=== PATIENT | female | born 1925 | race Caucasian/White ===

== ENCOUNTER 2016-05-29 16:51 | Emergency (ER) | payer OTHER, MEDICARE ==
[~2016-05-29] VITALS: Ht 167.6 cm; Wt 75.0 kg
[~2016-05-29 16:51] MED LIST: ASPI81TA28 PO; ATOR-24 PO; B-COCAP2 PO; BUPR75TA20 PO; FOLIC ACID PO; FRS/40 PO; METAMUCIL PO; MULT-506 PO
[2016-05-29 17:00] VITALS: TEMP 36; Ht 167.6 cm; Wt 75.0 kg
[2016-05-29] MEDS ORDERED: DIPHTHERIA/TETANUS/PERTUSSIS 0.5 ML SYR/VIAL IM. ONE (17:15)
--- NOTE | 2016-05-29 17:28 | EMERGENCY ROOM VISIT NOTE ---
History Report prepared by Zeny: Frankie Peng Under the Supervision of: Dr. Miguel Funez M.D. First contact with patient: 16:56 Chief Complaint: FALL Stated Complaint: FALL, HEAD INJURY History of Present Illness The patient is an 89 year old female who presents to the Emergency Room after a fall prior to arrival. The patient was in the parking lot of her alf where she fell and hit her head. She was found by a farm equipment maintenance supervisor who saw blood on the ground and then found her sitting in his car. The patient does not remember getting into a car that was not hers. She denies any pain or medical complaints at this time. Her history is limited due to AMS. Source of History: alf notes, nursing staff Onset: prior to arrival Position: other (global) Note: Denies: pain or medical complaints at this time. Review of Systems The ROS is limited due to AMS. Past Medical & Surgical Medical Problems: (1) Angioplasty (2) Benign hypertension (3) Cardiac catheterization (4) Cardiac stent (5) Fracture of cervical spine (6) Glaucoma (7) Heart disease (8) Hyperlipidemia (9) Kidney disease (10) Macular degeneration (11) Myocardial infarction Family History No pertinent family history Social History Smoking Status: Never Smoker Marital Status: Housing Status: assisted living Occupation Status: retired Current/Historical Medications Scheduled Aspirin (Aspirin Ec), 81 MG PO DAILY Atenolol (Tenormin), 12.5 MG PO DAILY Atorvastatin (Lipitor), 40 MG PO HS Bupropion (Wellbutrin), 75 MG PO DAILY Folic Acid (Folic Acid), 400 MCG PO DAILY Furosemide (Lasix), 40 MG PO DAILY Multivitamin (Multivitamin), 1 TAB PO DAILY Psyllium (Metamucil), 1 CAP PO DAILY Vitamin B Cmplx/Vitc/Folic Ac (Nephrocaps), 1 CAP PO DAILY Allergies Coded Allergies: Phenobarbital (Verified Allergy, Unknown, 05/13/09) Physical Exam Vital Signs Date Time Temp Pulse Resp B/P Pulse Ox O2 Delivery O2 Flow Rate FiO2 05/29/16 17:35 88 20 165/83 99 Nasal Cannula 2.0 05/29/16 17:00 36.0 85 20 170/88 96 Physical Exam GENERAL: Patient is elderly appearing in no distress. Confused and continues to repeat the same questions. HEENT: Large hematoma over posterior scalp with blood matted in hair, mucous membranes moist, no nasal congestion, no scleral icterus. NECK: No stridor, no adenopathy, no meningismus, trachea is midline. LUNGS: No dyspnea. Clear to auscultation and equal bilaterally. No wheeze, no rhonchi. HEART: Irregular heart beats and systolic murmur. ABDOMEN: Soft, nontender, bowel sounds positive, no masses appreciated, no peritonitis. BACK: No midline tenderness, no CVA tenderness EXTREMITIES: Normal motion all extremities, no cyanosis, no edema. NEUROLOGIC: Alert and oriented, no acute motor or sensory deficits, no focal weakness, cranial nerves grossly intact. SKIN: No rash, no jaundice, no diaphoresis. Medical Decision & Procedures ER Provider Diagnostic Interpretation: X ray results and stated below per my interpretation and radiologist interpretation. Other radiology results and stated below per my review and radiologist interpretation: HEAD CT NONCONTRAST CT DOSE: HISTORY: fall, posterior head injury, confusion TECHNIQUE: Multiaxial CT images of the head were performed without the use of intravenous contrast. Automated exposure control was utilized for this study. Comparison: Head CT 04/13/2010. Findings: Chronic opacities in the right maxillary sinus and right anterior ethmoid air cells. Postoperative changes within the left globe. The mastoid air cells are clear. Right lateral and posterior scalp swelling. Nondisplaced right parietal fracture. Right-sided Extra-axial hematoma which has a lentiform appearance and measures up to 1.3 cm in thickness. Therefore, this is consistent with an epidural hematoma. Mild mass effect along the right parietal lobe. No significant midline shift. Old small infarcts within the left cerebellar hemisphere and right frontal lobe. Atrophy and microvascular ischemic changes. Trace subarachnoid and subdural hemorrhage within the bifrontal location with associated bifrontal small contusions. The subdural hemorrhage measures up to 4 mm in thickness. Impression: 1. Right parietal epidural hematoma with a nondisplaced right parietal bone fracture 2. Small bifrontal contusions, subarachnoid hemorrhage, and subdural hematomas. Electronically signed by: Peter Tellez M.D. 05/29/2016 5:33 PM Dictated Date/Time: 05/29/2016 5:[address] DOSE: 934.04 mGy.cm HISTORY: Trauma fall, posterior head injury, confusion TECHNIQUE: Multiaxial CT images of the cervical spine were performed and reformatted in the sagittal and coronal plane without the use of contrast. COMPARISON: None. FINDINGS: No fractures. No subluxation. Prevertebral soft tissues and the C1-C2 interval are intact. No pneumothorax. Findings consistent with pin fixation of the C1-C2 complex. This is considered a nonacute finding. There are degenerative intervertebral this changes throughout. IMPRESSION: Degenerative and postoperative change. No acute process. Electronically signed by: Vicente Rojas M.D. 05/29/2016 5:27 PM Dictated Date/Time: 05/29/2016 5:20 PM PELVIS 1 OR 2 VIEW ROUTINE CLINICAL HISTORY: fall. Pelvic pain. COMPARISON STUDY: Pelvis 04/13/2010. FINDINGS: The bones are osteopenic. Old, healed left pubic ring fracture. The sacrum appears intact. No acute fracture or dislocation within the pelvis or hips. There is mild to moderate osteoarthritis within the bilateral hips. IMPRESSION: No acute fracture or dislocation within the pelvis or hips. Electronically signed by: Peter Tellez M.D. 05/29/2016 5:40 PM Dictated Date/Time: 05/29/2016 5:39 PM CHEST ONE VIEW PORTABLE HISTORY: Altered mental status. COMPARISON: Chest 09/14/2012. FINDINGS: Mild diffuse interstitial thickening is likely chronic. The heart remains mildly enlarged. There is extensive posterior fusion within the thoracic spine. Old, healed bilateral humeral neck fractures. The bones are osteopenic. IMPRESSION: No significant change compared to the prior study. No acute process. Stable mild cardiomegaly. Electronically signed by: Peter Tellez M.D. 05/29/2016 5:39 PM Dictated Date/Time: 05/29/2016 5:37 PM Laboratory Results 05/29/16 17:25 Red Blood Count 4.15, Mean Corpuscular Volume 92.0, Mean Corpuscular Hemoglobin 30.4, Mean Corpuscular Hemoglobin Concent 33.0, Mean Platelet Volume 10.8, Neutrophils (%) (Auto) 82.3, Lymphocytes (%) (Auto) 9.1, Monocytes (%) (Auto) 5.4, Eosinophils (%) (Auto) 2.7, Basophils (%) (Auto) 0.3, Neutrophils # (Auto) 7.82, Lymphocytes # (Auto) 0.87, Monocytes # (Auto) 0.51, Eosinophils # (Auto) 0.26, Basophils # (Auto) 0.03 05/29/16 17:25 Test 05/29/16 17:25 05/29/16 17:45 White Blood Count 9.51 K/uL (4.8-10.8) Red Blood Count 4.15 M/uL (4.2-5.4) Hemoglobin 12.6 g/dL (12.0-16.0) Hematocrit 38.2 % (37-47) Mean Corpuscular Volume 92.0 fL (80-100) Mean Corpuscular Hemoglobin 30.4 pg (25-34) Mean Corpuscular Hemoglobin Concent 33.0 g/dl (32-36) Platelet Count 201 K/uL (130-400) Mean Platelet Volume 10.8 fL (7.4-10.4) Neutrophils (%) (Auto) 82.3 % Lymphocytes (%) (Auto) 9.1 % Monocytes (%) (Auto) 5.4 % Eosinophils (%) (Auto) 2.7 % Basophils (%) (Auto) 0.3 % Neutrophils # (Auto) 7.82 K/uL (1.4-6.5) Lymphocytes # (Auto) 0.87 K/uL (1.2-3.4) Monocytes # (Auto) 0.51 K/uL (0.11-0.59) Eosinophils # (Auto) 0.26 K/uL (0-0.5) Basophils # (Auto) 0.03 K/uL (0-0.2) RDW Standard Deviation 46.8 fL (36.4-46.3) RDW Coefficient of Variation 13.9 % (11.5-14.5) Immature Granulocyte % (Auto) 0.2 % Immature Granulocyte # (Auto) 0.02 K/uL (0.00-0.02) Prothrombin Time 10.9 SECONDS (9.0-12.0) Prothromb Time International Ratio 1.0 (0.9-1.1) Activated Partial Thromboplast Time 23.2 SECONDS (21.0-31.0) Partial Thromboplastin Ratio 0.9 Anion Gap 11.0 mmol/L (3-11) Est Creatinine Clear Calc Drug Dose 15.2 ml/min Estimated GFR () 18.2 Estimated GFR (Non- 15.7 BUN/Creatinine Ratio 17.3 (10-20) Calcium Level 9.3 mg/dl (8.5-10.1) Total Bilirubin 0.3 mg/dl (0.2-1) Direct Bilirubin 0.1 mg/dl (0-0.2) Aspartate Amino Transf (AST/SGOT) 23 U/L (15-37) Alanine Aminotransferase (ALT/SGPT) 24 U/L (12-78) Alkaline Phosphatase 95 U/L (45-117) Total Creatine Kinase 181 U/L (26-192) Troponin I < 0.015 ng/ml (0-0.045) Total Protein 7.7 gm/dl (6.4-8.2) Albumin 3.9 gm/dl (3.4-5.0) Bedside Glucose 112 mg/dl (70-90) Laboratory results as reviewed by me. Medications Administered Medications (Trade) Dose Ordered Sig/Rebeca Route Start Time Stop Time Status Last Admin Dose Admin Ondansetron HCl (Zofran Inj) 4 mg STK-MED ONCE .ROUTE 05/29/16 17:41 05/29/16 17:43 DC 05/29/16 17:52 4 MG Fentanyl Citrate (Fentanyl Inj) 25 mcg NOW STAT IV 05/29/16 17:45 05/29/16 17:46 DC 05/29/16 17:52 25 MCG ECG Indication: other Rate (beats per minute): 84 Rhythm: normal sinus Findings: ST depression (Inferior-laterally), no ectopy ED Course 1654: The patient was evaluated in room B2. A complete history and physical exam was performed. 1715: Ordered Adacel Inj 0.5 ml IM. 1716: At this time, the patient's son arrived. He notes that the patient is typically high-functioning. 1722: At this time, I discussed the patient's case with Dr. Carreon - Emergency [facility] and he agreed to accept the patient for further evaluation. 1723: At this time, [facility] was contacted to transport the patient. 1738: At this time, I reevaluated the patient and she complained of mild nausea. 1741: Ordered Zofran Inj 4 mg .ROUTE. 1742: At this time, [facility] arrived and prepared the patient for transfer. 1743: At this time, I reevaluated the patient and she notes her nausea is somewhat resolved after Zofran. 1745: Ordered Fentanyl Inj 100 mcg .ROUTE, Fentanyl Inj 25 mcg IV. 1750: At this time, the patient was transferred to [facility] ED for further evaluation. Dr. Carreon had already accepted the patient. Medical Decision Differential: Toxicological, Infectious, Stroke, SAH, Trauma, Electrolyte Abnormality, Hypoglycemia, Alcohol Intoxication, Drug Intoxication, Cardiac Abnormality, Sepsis, Meningitis/Encephalitis, Trauma, Excited Delirium, Serotonin Syndrome, Psychiatric, amongst other pathologies entertained. 89 yr old female arrives confused with large hematoma posterior scalp after being found in wrong car in local parking lot. She was immediately sent to CT for head/cspine. CXR/PelvXrays negative. CT shows epidural hematoma. Maintaining airways though clearly concussed. Placed in cervical collar as unable to clear c-spine even though ct cervical negative. EKG looks ok. Transferred to [facility] via [facility] given acuity and need for emergent NRSG intervention that is not available here. On ASA 81 mg daily without other blood thinner use. Son notes she is relatively high functioning for 89 and agrees with aggressive management. Fast negative and patient stable prior to transfer. Was given Fentanyl/Zofran prior to transfer for nausea and pain control. Consults Time Called: 1718 Consulting Physician: Dr. Carreon - Emergency Medicine [facility] Returned Call: 1722 At this time, I discussed the patient's case with Dr. Carreon and he agreed to accept the patient for further evaluation. Impression Primary Impression: Epidural hematoma Additional Impressions: Fall Head injury Critical Care I have personally spent greater than 45 minutes of critical care time in the direct management of this patient. This was a life/limb threatening event. This includes time spent evaluating patient, direct bedside care, chart review, placing orders, interpretation of diagnostic studies, discussion with consultants, patient, and family members, as well as other required patient management activities. This 45 minutes is in excess of all separately billable procedures. Scribe Attestation The scribe's documentation has been prepared under my direction and personally reviewed by me in its entirety. I confirm that the note above accurately reflects all work, treatment, procedures, and medical decision making performed by me. Departure Information Dispostion Transfer Acute Care Facility (Dr. Carreon - Emergency Medicine [facility]) Referrals Lucas Tipton M.D. (PCP) Problem Qualifiers Additional Impressions: Fall Encounter type: initial encounter Qualified Codes: W19.XXXA - Unspecified fall, initial encounter Head injury Encounter type: initial encounter Qualified Codes: S09.90XA - Unspecified injury of head, initial encounter
[2016-05-29] MEDS ORDERED: FLV400 PO (17:34)
--- NOTE | 2016-05-29 17:34 | DIAGNOSTIC IMAGING REPORT ---
HEAD CT NONCONTRAST CT DOSE: HISTORY: fall, posterior head injury, confusion TECHNIQUE: Multiaxial CT images of the head were performed without the use of intravenous contrast. Automated exposure control was utilized for this study. Comparison: Head CT 04/13/2010. Findings: Chronic opacities in the right maxillary sinus and right anterior ethmoid air cells. Postoperative changes within the left globe. The mastoid air cells are clear. Right lateral and posterior scalp swelling. Nondisplaced right parietal fracture. Right-sided Extra-axial hematoma which has a lentiform appearance and measures up to 1.3 cm in thickness. Therefore, this is consistent with an epidural hematoma. Mild mass effect along the right parietal lobe. No significant midline shift. Old small infarcts within the left cerebellar hemisphere and right frontal lobe. Atrophy and microvascular ischemic changes. Trace subarachnoid and subdural hemorrhage within the bifrontal location with associated bifrontal small contusions. The subdural hemorrhage measures up to 4 mm in thickness. Impression: 1. Right parietal epidural hematoma with a nondisplaced right parietal bone fracture 2. Small bifrontal contusions, subarachnoid hemorrhage, and subdural hematomas. Electronically signed by: Peter Tellez M.D. 05/29/2016 5:33 PM Dictated Date/Time: 05/29/2016 5:27 PM
[2016-05-29 17:35] VITALS: BP 165/83; PULSE 88; O2SAT 99
[2016-05-29] MEDS ORDERED: PSYL0.524 PO (17:36)
[2016-05-29] MEDS ORDERED: B-CO1CAP17 PO (17:36)
[2016-05-29 17:38] LABS: BASO % 0.3 %; BASO ABS # 0.03 K/uL (0-0.2); COMPLETE YES; EOS % 2.7 %; HEMATOCRIT 38.2 % (37-47); IG% 0.2 %; LYMPH % 9.1 %; LYMPH ABS # 0.87 K/uL (1.2-3.4); MEAN CORPUSCULAR HEMOGLOBIN 30.4 pg (25-34); MEAN PLATELET VOLUME 10.8 fL (7.4-10.4); MONO % 5.4 %; NEUT % 82.3 %; PLATELET COUNT 201 K/uL (130-400); RED BLOOD COUNT 4.15 M/uL (4.2-5.4); WHITE BLOOD COUNT 9.51 K/uL (4.8-10.8)
--- NOTE | 2016-05-29 17:40 | DIAGNOSTIC IMAGING REPORT ---
CHEST ONE VIEW PORTABLE HISTORY: Altered mental status. COMPARISON: Chest 09/14/2012. FINDINGS: Mild diffuse interstitial thickening is likely chronic. The heart remains mildly enlarged. There is extensive posterior fusion within the thoracic spine. Old, healed bilateral humeral neck fractures. The bones are osteopenic. IMPRESSION: No significant change compared to the prior study. No acute process. Stable mild cardiomegaly. Electronically signed by: Peter Tellez M.D. 05/29/2016 5:39 PM Dictated Date/Time: 05/29/2016 5:37 PM
[2016-05-29] MEDS ORDERED: ONDANSETRON INJ 2 MG/ML 2 ML VIAL ONE (17:41)
--- NOTE | 2016-05-29 17:42 | DIAGNOSTIC IMAGING REPORT ---
PELVIS 1 OR 2 VIEW ROUTINE CLINICAL HISTORY: fall. Pelvic pain. COMPARISON STUDY: Pelvis 04/13/2010. FINDINGS: The bones are osteopenic. Old, healed left pubic ring fracture. The sacrum appears intact. No acute fracture or dislocation within the pelvis or hips. There is mild to moderate osteoarthritis within the bilateral hips. IMPRESSION: No acute fracture or dislocation within the pelvis or hips. Electronically signed by: Peter Tellez M.D. 05/29/2016 5:40 PM Dictated Date/Time: 05/29/2016 5:39 PM
[2016-05-29] MEDS ORDERED: FENTANYL CITRATE INJ 50 MCG/1 ML 2 ML VIAL ONE (17:45)
[2016-05-29] MEDS ORDERED: FENTANYL CITRATE INJ 50 MCG/1 ML 2 ML VIAL IV STA (17:45)
[2016-05-29 17:48] LABS: PARTIAL THROMBOPLASTIN RATIO 0.9; PROTHROMBIN TIME (PATIENT) 10.9 SECONDS (9.0-12.0)
[2016-05-29 17:57] LABS: ALT/SGPT 24 U/L (12-78); BLOOD UREA NITROGEN 45 mg/dl (7-18); BUN/CREATININE RATIO 17.3 (10-20); CALCIUM 9.3 mg/dl (8.5-10.1); CARBON DIOXIDE 25 mmol/L (21-32); CHLORIDE 103 mmol/L (98-107); GLUCOSE 132 mg/dl (70-99); POTASSIUM 5.2 mmol/L (3.5-5.1); SODIUM 139 mmol/L (136-145)
[2016-05-29 18:03] LABS: ALKALINE PHOSPHATASE 95 U/L (45-117); AST/SGOT 23 U/L (15-37)
[2016-05-29] MEDS ORDERED: ATEN-173 PO (22:01)
== END 2016-05-29 18:00 | disposition short-term general hospital (02) ==
LOC: EDBD 16:51 → C.EDB 16:52
DX: S06.4X9A Epidural hemorrhage with loss of consciousness of unspecified duration, initial encounter (principal); W19.XXXA Unspecified fall, initial encounter; S06.9X9A Unspecified intracranial injury with loss of consciousness of unspecified duration, initial encounter; I99.9 Unspecified disorder of circulatory system; I10 Essential (primary) hypertension; H40.9 Unspecified glaucoma; E78.5 Hyperlipidemia, unspecified; I51.9 Heart disease, unspecified; N28.9 Disorder of kidney and ureter, unspecified; H35.30 Unspecified macular degeneration; I21.3 ST elevation (STEMI) myocardial infarction of unspecified site; Z79.82 Long term (current) use of aspirin; S02.0XXA Fracture of vault of skull, initial encounter for closed fracture; S00.93XA Contusion of unspecified part of head, initial encounter

== ENCOUNTER → 2016-06-21 | Outpatient (CLI) | payer OTHER, MEDICARE ==
[~2016-06-21] MED LIST changes: +ATEN-173 PO; +B-CO1CAP17 PO; -B-COCAP2 PO; +DOCU100C31 PO; +FLV400 PO; -FOLIC ACID PO; -METAMUCIL PO; +MULT-116 PO; +POLY335019 PO; +PSYL0.524 PO
[2016-06-21 13:25] LABS: BASO % 0.6 %; BASO ABS # 0.04 K/uL (0-0.2); COMPLETE YES; EOS % 4.9 %; HEMATOCRIT 34.1 % (37-47); IG% 0.2 %; LYMPH % 18.6 %; LYMPH ABS # 1.17 K/uL (1.2-3.4); MEAN CELL VOLUME 93.7 fL (80-100); MEAN CORPUSCULAR HEMOGLOBIN 30.2 pg (25-34); MEAN CORPUSCULAR HGB CONC 32.3 g/dl (32-36); MONO % 8.3 %; NEUT % 67.4 %; PLATELET COUNT 284 K/uL (130-400); RED BLOOD COUNT 3.64 M/uL (4.2-5.4); WHITE BLOOD COUNT 6.29 K/uL (4.8-10.8)
[2016-06-21 13:39] LABS: BLOOD UREA NITROGEN 28 mg/dl (7-18); CALCIUM 9.3 mg/dl (8.5-10.1); CARBON DIOXIDE 26 mmol/L (21-32); CHLORIDE 107 mmol/L (98-107); GLUCOSE 86 mg/dl (70-99); POTASSIUM 4.4 mmol/L (3.5-5.1); SODIUM 142 mmol/L (136-145)
[2016-06-21 14:28] LABS: ESTIMATED AVERAGE GLUCOSE 114 mg/dl; HA1C FLAG Normal (Normal)
--- NOTE | 2016-08-15 12:09 | CODING QUERY MEDICAL NECESSITY ---
SUPPORTING DIAGNOSIS NEEDED Young PA, A supporting diagnosis is required for the test/procedure performed on this patient in order for us to be reimbursed by the patient's insurance. Please provide a supporting diagnosis for the following test/procedure listed below next to the test name along with your signature. *If there is no additional diagnosis for this patient that would support the following test/procedure please document that below next to the test/procedure. Test(s)/Procedure(s) that require a supporting diagnosis: * 31867 GLYCATED HEMOGLOBIN DIAGNOSIS: DATE OF SERVICE: 06/21/16 Provider Signature: Date: Thank you Ceferino Olvera [facility] Information Management Once completed, please kindly fax back to [phone] For questions please call [phone]
== END | disposition home or self-care (01) ==
LOC: C.LABOAKS 10:34
PROVIDERS: ATTEND Physician Assistant
DX: E78.5 Hyperlipidemia, unspecified (principal); I10 Essential (primary) hypertension; N28.9 Disorder of kidney and ureter, unspecified; E74.39 Other disorders of intestinal carbohydrate absorption; Z13.1 Encounter for screening for diabetes mellitus

== ENCOUNTER 2016-08-04 16:04 | Inpatient (IN) | payer OTHER, MEDICARE ==
[~2016-08-04] VITALS: Ht 160 cm; Wt 60.6 kg
[2016-08-04] VITALS (23 sets, daily range): BP systolic 99–185; BP diastolic 51–117; PULSE 35–153; TEMP 36.3–37.4; O2SAT 40–100; Ht 160 cm; Wt 60.6 kg
[~2016-08-04 16:04] MED LIST changes: +ATROPINE SULFATE 0.1 MG/ML 10 ML SYR IV ONE; -DOCU100C31 PO; -MULT-116 PO; -POLY335019 PO
[2016-08-04] MEDS ORDERED: METOCLOPRAMIDE HCL INJ 5 MG/ML 2 ML VIAL ONE (16:11)
[2016-08-04] MEDS ORDERED: HEPARIN SOD (PORCINE) 1000 UNIT/ML 10 ML VIAL ONE (16:23)
[2016-08-04] MEDS ORDERED: NiCARDipine HCL INJ 2.5 MG/ML 10 ML AMP ONE (16:23)
[2016-08-04] MEDS ORDERED: MIDAZOLAM HCL 1 MG/ML 2ML VIAL ONE ×3 (16:23→17:41)
[2016-08-04] MEDS ORDERED: FENTANYL CITRATE INJ 50 MCG/1 ML 2 ML VIAL ONE (16:23)
[2016-08-04] MEDS ORDERED: NITROGLYCERIN/D5W 100MCG/ML 20ML SYR ONE (16:24)
[2016-08-04] MEDS: PHENYLEPHRINE HCL INJ 20 MG in DEXTROSE 5% 500ML 500 ML IV PRN (16:25)
[2016-08-04] MEDS ORDERED: MULT-116 PO (16:26)
[2016-08-04] MEDS ORDERED: DOCU100C31 PO (16:26)
[2016-08-04] MEDS ORDERED: POLY335019 PO (16:26)
[2016-08-04] MEDS ORDERED: PHENYLEPHRINE HCL INJ 10 MG/ML VIAL ONE (16:27)
[2016-08-04] MEDS ORDERED: NURSING DECISION MEDICATION ORDER SCH (16:30)
[2016-08-04] MEDS ORDERED: BIVALIRUDIN 250 MG VIAL IV ONE ×2 (16:37→17:44)
--- NOTE | 2016-08-04 16:39 | EMERGENCY ROOM VISIT NOTE ---
History Report prepared by Zeny: Laura Allison Under the Supervision of: Dr. Mohit Levine M.D. First contact with patient: 16:05 Stated Complaint: CARDIAC ALERT History of Present Illness The patient is an 89 year old female who presents to the Emergency Room via ALS with complaints of AMS. The patient currently lives at [facility] and the ambulance was called because the patient was found to have AMS, projectile vomiting, and fecal incontinence. According to EMS personnel the patient was not given aspirin in the field due to persistent vomiting and did not receive Zofran due to her high QT during route. The EMS personnel also stated that during route the patient did not voice any complaints of pain but would recognize her name during transfer. He states that the patient's blood glucose was 197. The EMS personnel also states that the patient did not experience any falls today or any loss of consciousness. The patient's son states that the patient had an acute LA in 1999 and had a stent placed but over the last 17 years she has no other cardiac history. He also states that he spoke to the patient on the phone this morning and states that she was acting and speaking normally. He states that she has been diagnosed with Dementia in the past but that she has days where she is more forgetful and demented than others. He states that the patient had a head bleed in May 2016 where she was transferred to a tertiary care center for further treatment and states that she has recovered well. Source of History: family (son), EMS History Limited By: AMS Onset: 1 hour ACCOUNT DEVELOPMENT ASSOCIATE Position: other (global) Associated Symptoms: + vomiting Note: Associated symptoms: fecal incontinence. Review of Systems ROS limited due to AMS Past Medical & Surgical Medical Problems: (1) Angioplasty (2) Benign hypertension (3) Cardiac catheterization (4) Cardiac stent (5) Fracture of cervical spine (6) Glaucoma (7) Heart disease (8) Hyperlipidemia (9) Kidney disease (10) Macular degeneration (11) Myocardial infarction Family History No pertinent family history Social History Smoking Status: Never Smoker Marital Status: Housing Status: assisted living Occupation Status: retired Current/Historical Medications Scheduled Atenolol (Tenormin), 12.5 MG PO DAILY Atorvastatin (Lipitor), 40 MG PO HS Bupropion (Wellbutrin), 75 MG PO DAILY Docusate Sodium (Docusate Sodium), 1 CAP PO DAILY AT NOON Folic Acid (Folic Acid), 400 MCG PO DAILY Furosemide (Lasix), 40 MG PO DAILY Multiple Vitamins W/ Minerals (Theragran-M), 1 TAB PO QAM Scheduled PRN Polyethylene Glycol 3350 (Miralax), 17 GM PO DAILY PRN for Constipation Allergies Coded Allergies: Phenobarbital (Verified Allergy, Unknown, 08/04/16) Physical Exam Vital Signs Date Time Temp Pulse Resp B/P Pulse Ox O2 Delivery O2 Flow Rate FiO2 08/04/16 16:12 43 08/04/16 16:08 45 22 70/54 08/04/16 16:08 Room Air Physical Exam GENERAL: Patient awake, disoriented and confused. incontinent of stool. SKIN: No erythema, pallor, cyanosis or rash HEENT: Normal head, pupils equal, reactive to light and accommodation. Oral cavity dry mucus membranes Neck: Without adenopathy, no neck vein distention. LUNGS: Clear to auscultation. No wheezes, no rales, no rhonchi. HEART: muffled heart tones with 2/6 systolic murmur. No gallops. No rubs ABDOMEN: No masses, no rebound, no hepatomegaly or splenomegaly. EXTREMITIES: No signs of trauma. No pedal or pretibial edema. No calf or thigh tenderness. NEUROLOGIC: Cranial nerves II-XII within normal limits. No gross motor sensory function deficits. Medical Decision & Procedures Medications Administered Medications (Trade) Dose Ordered Sig/Rebeca Route Start Time Stop Time Status Last Admin Dose Admin Metoclopramide HCl 10 mg 10 mg STK-MED ONCE .ROUTE 08/04/16 16:11 08/04/16 16:12 DC 08/04/16 16:11 10 MG Phenylephrine HCl/ Dextrose (Luís-Synephrine Inj/D5W 500ml) 502 ml @ 0 mls/hr Q0M PRN IV 08/04/16 16:30 09/03/16 16:29 08/04/16 16:25 20 MLS/HR Procedure During catheterization patient became apneic and therefore the financial specialist called for intubation. I assessed the patient and she was not ventilating well and then was intubated with a 7.0 ET tube. Pulse ox increased. CO2 monitoring confirmed correct placement. Both lungs noted to have good breath sounds. The X-ray results are pending. The patient tolerated the procedure well. There were no complications. ECG Indication: altered mental status Rate (beats per minute): 43 Rhythm: sinus bradycardia Findings: complete heart block (3rd), ST depression (Leads 4,5), T-wave inversion (all precordial leads), ST elevation (Leads 2, 3, AVF) ED Course During the patient be given #(the patient is in intubated 1557: The heart alert was called during transport while the patient was in route to the hospital. 1605: Past medical records reviewed. The patient was evaluated in room B1. A complete history and physical examination was performed. 1621: I discussed the case with Dr. Hendricks Cardiology and he will evaluate the patient for further management and care. 1629: The patient is currently being transported to the catheterization lab under Dr. Hendricks Cardiology care. 1652: During catheterization patient became apneic and therefore the financial specialist called for intubation. I assessed the patient and she was not ventilating well and then was intubated with a 7.0 ET tube. Pulse ox increased. CO2 monitoring confirmed correct placement. Both lungs noted to have good breath sounds. The X-ray results are pending. Medical Decision Nurses notes reviewed. Medical history sheet reviewed. Differential diagnosis includes but is not limited to: heart block, acute myocardial infarction, metabolic disorder, dementia, and stroke. The patient arrived here via EMS. Heart alert was called from the field. Command was given by Dr. Castro. The patient had significant inferior ST changes on her EKG done from the field. I met the patient arrival. She had altered mental status and was unable to provide any history or review of systems. We did review records from her nursing facility. The patient did not receive aspirin due to her persistent vomiting. She is not given Zofran due to her arrhythmia. Multiple labs, EKG and imaging were obtained here in the ED. The patient is in a third-degree AV block along with the ST changes consistent with anterior wall infarction. The patient was hypotensive and received an IV fluid bolus. She was given Reglan for nausea which did not seem to help. Luís-Synephrine was ordered by the financial specialist. I discussed care with the patient's and with the welder/fitter. Chest x-ray was reviewed. The patient was sent to open hearth laborer. I was later called to the [facility] for urgent intubation. Please see above. Impression Primary Impression: Acute LA, inferior wall Additional Impressions: Complete heart block Altered mental status Critical Care I have personally spent greater than 35 minutes of critical care time in the direct management of this patient. This includes bedside care, interpretation of diagnostic studies, and testing, discussion with consultants, patient, and family members, and other required patient management activities. This 35 minutes is in excess of all separately billable procedures. Scribe Attestation The scribe's documentation has been prepared under my direction and personally reviewed by me in its entirety. I confirm that the note above accurately reflects all work, treatment, procedures, and medical decision making performed by me. Departure Information Dispostion Being Evaluated By Hospitalist Serena (PCP) Problem Qualifiers
--- NOTE | 2016-08-04 16:55 | DIAGNOSTIC IMAGING REPORT ---
CHEST ONE VIEW PORTABLE HISTORY: HEART ALERT COMPARISON: Chest 05/29/2016. FINDINGS: The heart remains mildly enlarged. The interstitial thickening has improved. No pleural effusions. No pneumothorax. Extensive thoracic spinal fusion hardware remains unchanged. There is a defibrillator pad overlying the right hemithorax and left upper quadrant. Calcified and tortuous thoracic aorta is again noted. No new focal lung consolidations. Old left humeral neck fracture. Old healed bilateral rib fractures. IMPRESSION: No acute process within the chest. Stable mild cardiomegaly. Electronically signed by: Peter Tellez M.D. 08/04/2016 4:54 PM Dictated Date/Time: 08/04/2016 4:52 PM
[2016-08-04] MEDS ORDERED: NURSING VERBAL MED ORDER ONE (17:30)
[2016-08-04] MEDS ORDERED: ALTEPLASE IV SCH (17:45)
[2016-08-04] MEDS ORDERED: RECOMBINANT IV SCH (17:45)
--- NOTE | 2016-08-04 18:39 | Cardiac Catheterization ---
Procedure Note Procedure Date Aug 04, 2016. Pre-Procedure Diagnosis STEMI AUC Score 9 Post-Procedure Diagnosis Severe CAD, Successful PCI Procedure(s) Performed Coronary Angiography, Left Heart Cath, PTCA, Bare Metal Stent, IVUS, Femoral Artery Angiography Cardiac Rn Ruthie [employer](s) None Estimated Blood Loss 30 Medication(s) Bivalirudin, Integrilin, Luís-Synephrine, Nitroglycerin, Versed, Lidocaine 1% Summary of Findings Single vessel Coronary artery disease Successful IVUS guided Bare metal stent to ostial RCA. Hypotension and bradycardia requiring treatment Respiratory distress requiring intubation Elevated LVEDP Hemodynamics Rest Ao: 166/71 (102) on Phenylephrine Final Ao: 151/94 (120) off drugs LV: 148/25 Recommendations PCI without planned CABG (Continue DAPT for 30 days then d/c Plavix due to intracranial bleed risk. ) Specimens None Radiation Exposure (mGy) 4510 Contrast (mls) 175 Visipaque Fluids (cc crystalloids) 500 Drains none Anesthesia versed Procedural Complication(s) Delayed anticoagulation due to iv infiltration Disposition ICU ACC Data Cardiac Status Clinical evaluation leading to the procedure CAD Presntation: STEMI STEMI or Non-STEMI: Symptom Onset Date/Time: 08/04/2016 approx 15:30 Thrombolytics: Yes (25 mg TPA in the tailings dam laborer ic) Anginal Classification: CCS IV Heart Failure: No Cardiogenic Shock w/in 24Hrs: Yes Cardiac Arrest w/in 24Hrs: No Imaging studies past 6 months: No Stress studies past 6 months: No Coronary Anatomy Dominant: Left RCA (% Stenosis): Ostial (100) Diagnostic Physician's Name: Tre Hendricks MD Status: Emergency Closure Device Percutaneous Entry Location: Femoral Closure Device: Angio-Seal Recommendations: PCI without planned CABG PCI Indication: Immediate PCI for STEMI First Noted: First EKG Reason For Delay in PCI: Difficulty crossing culprit lesion (Unable to seat guide in calcified flush ostial occlusion. ) Lesion Segment Name: Ostial RCA Culprit Artery: Yes Stenosis Prior to Rx (%): 100 Chronic Total Occlusion: No IVUS: Yes FFR: No Pre-Procedure JESSICA Flow: 0 Previously Treated Lesion: No Lesion Complexity: High/C Thrombus Present: Yes Bifurcation Lesion: No Guidewire Across Lesion: Yes Guidewire: Stenosis Post-Procedure (%): 5 Post-Procedure JESSICA Flow: 3 Device(s) Deployed: Yes Type of Device(s): Bare metal stent 3.5mm Final IVUS 8.2 sqmm at ostium. Full coverage of ostium. Small residual thrombus at crux after ic TPA. Intraprocedure Events Significant Dissection: No Perforation: No
[2016-08-04] MEDS ORDERED: MIDAZOLAM HCL 5 MG/ML 1 ML VIAL ONE (18:44)
[2016-08-04] MEDS ORDERED: ATROPINE SULFATE 0.1 MG/ML 10 ML SYR ONE (18:50)
[2016-08-04] MEDS ORDERED: ASPIRIN 300 MG SUPP PR ONE ×2 (19:15→20:45)
[2016-08-04] MEDS ORDERED: CLOPIDOGREL BISULFATE 300 MG TAB PO STA (19:41)
[2016-08-04] MEDS ORDERED: GLUCAGON FOR INJ 1 MG VIAL SQ PRN (19:45)
[2016-08-04] MEDS ORDERED: GLUCOSE 10 TABS/TUBE PO PRN (19:45)
[2016-08-04] MEDS ORDERED: GLUCOSE 40% GEL 15 GM TUBE PO PRN (19:45)
[2016-08-04] MEDS ORDERED: DEXTROSE 50% 50 ML SYR IV PRN (19:45)
[2016-08-04] MEDS ORDERED: ACETAMINOPHEN 325 MG TAB PO PRN (19:45)
[2016-08-04] MEDS ORDERED: MoRPHine SULFATE 2 MG/ML CARP IV PRN (19:45)
[2016-08-04] MEDS ORDERED: MoRPHine SULFATE 4 MG/ML 1 ML CARP\\VIAL IV PRN (19:45)
--- NOTE | 2016-08-04 20:19 | DIAGNOSTIC IMAGING REPORT ---
CHEST ONE VIEW PORTABLE HISTORY: intubation COMPARISON: Chest 08/04/2016. FINDINGS: Endotracheal tube terminates 1.8 cm in the presley. No pleural effusions. No pneumothorax. The heart is 08/04/2016in size. Linear densities within the right midlung zone and lung bases favor subsegmental atelectasis. Tortuous thoracic aorta. Thoracic spinal fusion hardware. Old fracture within the left humeral neck. IMPRESSION: The endotracheal tube terminates 1.7 from the presley. Electronically signed by: Peter Tellez M.D. 08/04/2016 8:18 PM Dictated Date/Time: 08/04/2016 8:15 PM
--- NOTE | 2016-08-04 20:22 | DIAGNOSTIC IMAGING REPORT ---
KUB HISTORY: For Tube Placement COMPARISON: None. FINDINGS: The bowel gas pattern is unremarkable. There are no dilated loops of small bowel to suggest an obstruction. No renal calculi. No ureteral calculi. No pneumoperitoneum or pneumatosis. Mild S-shaped scoliosis of the thoracolumbar spine. Hyperdense renal shadows likely due to the recent contrast administration from the cardiac catheterization. Vascular calcifications are noted. The tip of a Nolan catheter seen at the deep pelvis. IMPRESSION: 1. The tip of a Nolan catheter seen within the deep pelvis. 2. No evidence for bowel obstruction. Electronically signed by: Peter Tellez M.D. 08/04/2016 8:20 PM Dictated Date/Time: 08/04/2016 8:18 PM
[2016-08-04] MEDS ORDERED: PHARMACY GLYCEMIC MGMT CONSULT PRN (20:30)
[2016-08-04] MEDS: INSULIN ASPART 100 UNITS/ML 3 ML PEN SC SCH (20:45)
[2016-08-04 20:52] LABS: HEMATOCRIT 34.8 % (37-47); MEAN CELL VOLUME 93.3 fL (80-100); MEAN CORPUSCULAR HEMOGLOBIN 29.8 pg (25-34); MEAN CORPUSCULAR HGB CONC 31.9 g/dl (32-36); PLATELET COUNT 196 K/uL (130-400); RED BLOOD COUNT 3.73 M/uL (4.2-5.4); WHITE BLOOD COUNT 15.63 K/uL (4.8-10.8)
--- NOTE | 2016-08-04 20:52 | Pharmacy Progress Note ---
Glycemic: Assessment & Plan Date of Service Aug 04, 2016. Assessment & Plan HbA1c from 06/21/16 = 5.6%, no BSGs obtained with this ADM yet. PLAN: Will order Novolog q 6 hours with correction factor only. NPO. * Basal insulin: Not ordered at this time * Correctional Insulin: Novolog Correction per scale q 6 hours Goal Range: Low 140 mg/dL - High 180 mg/dL Correction Factor: 40 mg/dL/unit * Prandial insulin: Not ordered at this time Pharmacy will continue to monitor patient daily and write orders per [facility] inpatient glycemic control protocol. Thanks. * Please note that the plan above was derived based on current level of insulin resistance and hospital stress. These recommendations are appropriate for inpatient admission only. Plan of care upon discharge will need to be reassessed to avoid potential outpatient hypo/hyperglycemia.
[2016-08-04] MEDS ORDERED: ATORVASTATIN 40 MG TAB PO SCH (21:00)
[2016-08-04 21:15] LABS: BUN/CREATININE RATIO 14.1 (10-20); CREATININE 2.6 mg/dl (0.60-1.20); MAGNESIUM 2.2 mg/dl (1.8-2.4); POTASSIUM 4.3 mmol/L (3.5-5.1)
[2016-08-04] MEDS ORDERED: FENTANYL 1250MCG/250ML NSS 250 ML IV PRN (21:15)
[2016-08-04] MEDS ORDERED: MIDAZOLAM 125MG/250ML D5W 250 ML IV PRN (21:15)
[2016-08-04 21:17] LABS: ALB/GLOB RATIO 0.8 (0.9-2); PHOSPHORUS 4.6 mg/dl (2.5-4.9)
--- NOTE | 2016-08-04 21:18 | History and Physical ---
History & Physical Date & Time of Service: Aug 04, 2016 at 20:39 Chief Complaint: Acute Mi, Inferior Wall Primary Care Physician: JoshThe History of Present Illness Source: patient 89 y/o F Hx CAD, Systolic CHF, CKD, ICH following head injury. Pt was walking in the backyard of her nursing facility - devloped acute dizziness, confusion, vomiting and fecal incontinence. She was brought into the ER and diagnosed with an STEMI. She proceeded to the bean sprout laborer and received a BMS to the RCA. The pt is hypoxic, tachypnic and tachycardic following the procedure and is intubated at the time of evaluation by the medical service. She appears to be hemorrhaging form multiple sites as she has widespread superficial bruising, blood from her catheter and from her ETT. She could not provide any information however her son is present at bedside to provide the above information. Past Medical/Surgical History Medical Problems: (1) Angioplasty Status: Resolved (2) Benign hypertension Status: Chronic (3) Cardiac catheterization Status: Resolved (4) Cardiac stent Status: Resolved (5) Fracture of cervical spine Status: Chronic (6) Glaucoma Status: Chronic (7) Heart disease Status: Chronic (8) Hyperlipidemia Status: Chronic (9) Kidney disease Status: Chronic (10) Macular degeneration Status: Chronic (11) Myocardial infarction Status: Chronic 12) ICH following fall 06/22 Family History No pertinent family history Mother at age 94 4 years following a CVA Father form a GI hemorrhage age 82 Social History Smokes cigarettes when she is able to at the senior living Drinks alcohol occasionally Smoking Status: Current Some Day Smoker Alcohol Use: socially Drug Use: none Marital Status: Housing status: senior living Occupational Status: retired Immunizations History of Influenza Vaccine: Unknown History of Tetanus Vaccine?: Unknown History of Pneumococcal: Unknown History of Hepatitis B Vaccine: Unknown Multi-Drug Resistant Organisms History of MDRO: No Allergies Coded Allergies: Phenobarbital (Verified Allergy, Unknown, 08/04/16) Home Medications Scheduled Atenolol (Tenormin), 12.5 MG PO DAILY Atorvastatin (Lipitor), 40 MG PO HS Bupropion (Wellbutrin), 75 MG PO DAILY Docusate Sodium (Docusate Sodium), 1 CAP PO DAILY AT NOON Folic Acid (Folic Acid), 400 MCG PO DAILY Furosemide (Lasix), 40 MG PO DAILY Multiple Vitamins W/ Minerals (Theragran-M), 1 TAB PO QAM Scheduled PRN Polyethylene Glycol 3350 (Miralax), 17 GM PO DAILY PRN for Constipation Review of Systems Cannot obtain - per son was in her normal state of health prior to this evening Physical Exam Vital Signs Date Time Temp Pulse Resp B/P Pulse Ox O2 Delivery O2 Flow Rate FiO2 08/04/16 20:13 100 08/04/16 18:36 100 08/04/16 16:12 43 08/04/16 16:08 45 22 70/54 08/04/16 16:08 Room Air General Appearance: + pertinent finding (Intubated - sedated - pupils equal) Head: normocephalic, atraumatic Eyes: PERRL ENT: + pertinent finding (CAnnot examine oral cavity - small amount of blood in EG tube) Neck: + JVD Respiratory/Chest: + respiratory distress, + decreased breath sounds, + accessory muscle use, + crackles, + pertinent finding (B/L crackles - exam limited by coarse airway sounds ) Cardiovascular: + tachycardia, + systolic murmur Abdomen/GI: soft, no organomegaly Extremities/Musculoskelatal: normal inspection, no calf tenderness, normal capillary refill, no pedal edema Neurologic/Psych: + pertinent finding (Exam differed due to intubation/sedation ) Skin: + pertinent finding (There is widespread superficial bleeding ) Diagnostics Laboratory Results Results Past 24 Hours Test 08/04/16 17:27 08/04/16 17:53 08/04/16 19:44 Range/Units Kaolin Activated Coagulation Time 167 384 94-140 SECONDS Microbiology Results 08/04/16 MRSA DNA Surveillance Screen, Received Pending Diagnostic Radiology CXR: Endotracheal tube terminates 1.8 cm in the presley. No pleural effusions. No pneumothorax. The heart is 08/04/2016in size. Linear densities within the right midlung zone and lung bases favor subsegmental atelectasis. Tortuous thoracic aorta. Thoracic spinal fusion hardware. Old fracture within the left humeral neck. EKG STEMI Impression Assessment and Plan 89 y/o F Hx CAD, Systolic CHF, CKD, ICH following head injury 06/22. Pt was walking in the backyard of her nursing facility - developed acute dizziness, confusion, vomiting and fecal incontinence. She was brought into the ER and diagnosed with an STEMI. She proceeded to the bean sprout laborer and received a BMS to the RCA. The pt is hypoxic, tachypneic and tachycardic following the procedure and is intubated at the time of evaluation by the medical service. She appears to be hemorrhaging form multiple sites as she has widespread superficial bruising, blood from her catheter and from her ETT. She could not provide any information however her son is present at bedside to provide the above information. 1) STEMI - treated with bare metal stent to RCA - BP is stable - she required intubation prior to the procedure. Anticoagulation stopped due to hemorrhaging. Family aware of pts critical condition. 2) Hemorrhaging from multiple sites following anticoagulation during procedure. Transfusion consent obtained form POA. Will trend Hb which is stable at the time of admission. Sent for CT head due to recent ICH - results pending. Watch for neuro changes although it will be difficult to assess definitively at present. 3) Tachypnea, Hypoxia - respiratory distress leading to intubation. May be multifactorial but suspect aspiration PNM as she was confused and vomiting prior to arrival. Will treat with Zosyn at present - Nebs provided. 4) CKD 3-4 - Stable 5) CHF - Chronic systolic EF 25-30% - Does not appear overloaded clinically - monitor volume status - cont Lasix following AM assessment if indicated - cont B zach Discussed code status with son - pt is DNR although all else can proceed Total time for this admit including review of labs, meds, records, imaging, EKG - discussion with pts family, product safety technician - including critical care time 45 min. Level of Care Critical Care Resuscitation Status DO NOT RESUSCITATE VTE Prophylaxis VTE Risk Assessment Done? Y/N: Yes Risk Level: Moderate
[2016-08-04 21:19] LABS: PARTIAL THROMBOPLASTIN RATIO 7.4
[2016-08-04 21:25] LABS: BASO % 0.2 %; BASO ABS # 0.03 K/uL (0-0.2); COMPLETE YES; ECHINOCYTES 1+; EOS % 0.2 %; LYMPH % 11.3 %; LYMPH ABS # 1.77 K/uL (1.2-3.4); MONO % 10.2 %; NEUT % 77.1 %
[2016-08-04 21:26] LABS: INR > 8.0 (0.9-1.1)
[2016-08-04 21:40] LABS: ISTAT ARTERIAL BLOOD GAS HCO3 19 meq/L (19-24); ISTAT ARTERIAL BLOOD GAS PCO2 36 mmHg (35-46); ISTAT ARTERIAL BLOOD GAS PO2 405 mmHg (80-95); ISTAT ARTERIAL BLOOD GAS pH 7.33 (7.35-7.45); ISTAT CARBON DIOXIDE 20 mEq/l (24-31); ISTAT DELIVERY SYSTEM Ventilator; ISTAT FIO2 100 %; ISTAT PEEP 5; ISTAT RATE 37; ISTAT SITE Art Line; VE 19.1; Vt 500
--- NOTE | 2016-08-04 21:57 | Critical Care Consultation ---
Critical Care Consultation Date of Consultation: Aug 04, 2016. Attending Physician: Farrukh Reilly M.D. Reason for Consultation: Acute respiratory failure, ST elevation myocardial infarction History of Present Illness History obtained from prior records, patient is an 89-year-old female who currently lives in the [facility] who was found by staff to have altered mental status vomiting and fecal incontinence. Pre-hospital personnel obtained an EKG which was concerning for ST elevation FL and a hard alert was initiated. She required intubation in the Slag Skimmer secondary to vomiting and possible aspiration event. In discussion with Dr. Hendricks the patient had significant thrombus down the right coronary which required 25 mg of intra-arterial TPA, there able to successfully stent the proximal RCA, it was reported there was still sluggish flow in the distal aspects of the artery. His recommendation was to continue bivalirudin for 1-2 hours post cath, she would not require Integrilin after administration of a Plavix load and aspirin load. She did not get these in the emergency room due to severe vomiting. Past Medical/Surgical History Recent fall in May 2016 with epidural, subdural, intraparenchymal hemorrhage Coronary artery disease Cardiomyopathy Stent placement Dementia Renal insufficiency Prior pin fixation C1-C2 complex Family History No pertinent family history Social History Smoking Status: Never Smoker Marital Status: Housing Status: assisted living Occupation Status: retired Allergies Coded Allergies: Phenobarbital (Verified Allergy, Unknown, 08/04/16) Home Medications Scheduled Atenolol (Tenormin), 12.5 MG PO DAILY Atorvastatin (Lipitor), 40 MG PO HS Bupropion (Wellbutrin), 75 MG PO DAILY Docusate Sodium (Docusate Sodium), 1 CAP PO DAILY AT NOON Folic Acid (Folic Acid), 400 MCG PO DAILY Furosemide (Lasix), 40 MG PO DAILY Multiple Vitamins W/ Minerals (Theragran-M), 1 TAB PO QAM Scheduled PRN Polyethylene Glycol 3350 (Miralax), 17 GM PO DAILY PRN for Constipation Current Inpatient Medications Current Inpatient Medications Medications (Trade) Dose Ordered Sig/Rebeca Route Start Time Stop Time Status Last Admin Dose Admin Phenylephrine HCl/ Dextrose (Luís-Synephrine Inj/D5W 500ml) 502 ml @ 0 mls/hr Q0M PRN IV 08/04/16 16:30 09/03/16 16:29 08/04/16 16:25 20 MLS/HR Clopidogrel Bisulfate (plAVix TAB) 75 mg QAM PO 08/05/16 09:00 09/04/16 08:59 Heparin Sodium (Porcine) 5000 unit 5,000 unit Q12H SQ 08/05/16 08:00 09/04/16 07:59 UNV Sodium Chloride (1/2 Nss 1000ml) 1,000 ml @ 100 mls/hr Q10H IV 08/04/16 19:44 09/03/16 19:43 Acetaminophen 650 mg 650 mg Q4H PRN PO 08/04/16 19:45 09/03/16 19:44 Pantoprazole Sodium/Syringe (Protonix Inj/ Syringe) 10 ml @ 5 mls/min DAILY@1100 IV 08/05/16 11:00 09/04/16 10:59 Morphine Sulfate (MoRPHine SULFATE INJ) 2 mg Q2H PRN IV 08/04/16 19:45 08/18/16 19:44 Morphine Sulfate (MoRPHine SULFATE INJ) 4 mg Q2H PRN IV 08/04/16 19:45 08/18/16 19:44 Insulin Aspart (novoLOG ASPART) SLIDING SCALE IF C... Q6 SC 08/04/16 20:45 09/03/16 20:44 Glucose (Glucose 40% Gel) 15-30 GRAMS 15 GRAMS... UD PRN PO 08/04/16 19:45 09/03/16 19:44 Glucose (Glucose Chew Tab) 4-8 Tablets 4 Tabl... UD PRN PO 08/04/16 19:45 09/03/16 19:44 Dextrose (Dextrose 50% 50ML Syringe) 25-50ML OF 50% DW IV FOR... UD PRN IV 08/04/16 19:45 09/03/16 19:44 Glucagon (Glucagon Inj) 1 mg UD PRN SQ 08/04/16 19:45 09/03/16 19:44 Miscellaneous Information (Consult Glycemic Management Pharmacy) 1 ea UD PRN N/A 08/04/16 20:30 09/03/16 20:29 Atorvastatin Calcium (Lipitor Tab) 40 mg QPM PO 08/04/16 21:00 09/03/16 20:59 Aspirin (Ecotrin Tab) 325 mg QAM PO 08/05/16 09:00 09/04/16 08:59 Review of Systems Unable to obtain secondary to intubation Physical Exam Date Time Temp Pulse Resp B/P Pulse Ox O2 Delivery O2 Flow Rate FiO2 08/04/16 20:13 100 08/04/16 18:36 100 08/04/16 16:12 43 08/04/16 16:08 45 22 70/54 08/04/16 16:08 Room Air General Appearance: mild distress, thin Head: normocephalic, atraumatic Eyes: other (pupils reactive to light) ENT: epistaxsis present, other (bloody secretions from subglottic suction) Neck: trachea midline, no thyromegaly Respiratory: rhonchi (diffuse bilaterally), other (tachypnea) Cardiovasular: no murmur, no gallop, no rub, irregular rate (tachycardia) Abdomen: non tender, no rebound Genitourinary - Female: external genitalia normal (Nolan catheter present) Upper Extremities: no edema Lower Extremities: no edema Pulses: radial (R) (2+), radial (L) (2+), femoral (R) (2+, shadowing on wound bandage at puncture site), femoral (L) (2+) Neuro: other (withdraws to pain on the left upper and lower extremity, appears to almost have a the cerebrum posturing with the right upper extremity with pain ) Psychiatric: other (unable to evaluate) Laboratory Results Last 24 Hours Test 08/04/16 17:27 08/04/16 17:53 08/04/16 20:40 Kaolin Activated Coagulation Time 167 SECONDS 384 SECONDS White Blood Count 15.63 K/uL Red Blood Count 3.73 M/uL Hemoglobin 11.1 g/dL Hematocrit 34.8 % Mean Corpuscular Volume 93.3 fL Mean Corpuscular Hemoglobin 29.8 pg Mean Corpuscular Hemoglobin Concent 31.9 g/dl Platelet Count 196 K/uL Mean Platelet Volume 11.0 fL RDW Standard Deviation 46.2 fL RDW Coefficient of Variation 13.4 % Diagnostic Results Comparison: Head CT 05/29/2016. Findings: Opacified right maxillary sinus, unchanged. Fluid level and moderate mucosal thickening within the left maxillary sinus. Partial opacification of the ethmoid air cells. The mastoid air cells are clear. Screw fixation of the odontoid which is partially visualized. Postoperative changes within the left globe. The calvarium and skull base are intact. Abnormal hyperdensity throughout the subarachnoid spaces primarily involving the anterior circulation within the cerebral hemispheres. There is decreased enhancement within the bilateral KEYBOARDING CLERK territories and within the cerebellum. No intraventricular hemorrhage. Of note, the patient is status post recent cardiac catheterization resulting and enhancement of the cerebral vessels. Impression: 1. This patient is status post recent cardiac catheterization which severely limits this examination from a technical standpoint. The abnormal hyperdensity throughout the subarachnoid spaces of the anterior circulation is symmetric and may be due to the recent cardiac catheterization contrast. However, this would obscure subarachnoid hemorrhage. Therefore, follow-up head CT is recommended in 6 to 12 hours for further evaluation. 2. There is also decreased enhancement throughout the posterior circulation which involves the bilateral occipital lobes and cerebellum. This could also be a result of the post cardiac catheterization changes. However, the diminished enhancement raises the possibility of ischemia in the appropriate clinical setting. Again, this should be followed up for confirmation. 3. These findings were discussed with Dr. Pemberton at 10:15 PM on 08/04/2016. Electronically signed by: Peter Tellez M.D. 08/04/2016 10:19 PM Dictated Date/Time: 08/04/2016 9:59 PM CHEST ONE VIEW PORTABLE HISTORY: intubation COMPARISON: Chest 08/04/2016. FINDINGS: Endotracheal tube terminates 1.8 cm in the presley. No pleural effusions. No pneumothorax. The heart is 08/04/2016in size. Linear densities within the right midlung zone and lung bases favor subsegmental atelectasis. Tortuous thoracic aorta. Thoracic spinal fusion hardware. Old fracture within the left humeral neck. IMPRESSION: The endotracheal tube terminates 1.7 from the presley. Electronically signed by: Peter Tellez M.D. 08/04/2016 8:18 PM Dictated Date/Time: 08/04/2016 8:15 PM The status of this report is Signed. I reviewed the images of non-con CT abdomen and pelvis and CT scan of the chest , the time of this dictation they're being read by radiology Assessment & Plan Reason Critically Ill: Patient is an 89-year-old female who is critically ill due to a bare metal stent placement in the right RCA secondary to ST elevation FL, respiratory failure secondary to aspiration. PLAN: Neuro: Was initially helpful to extubate the patient early, however she appears to have an acute encephalopathy. Upon her arrival in the ICU she appeared to have decerebrate posturing of the right upper extremity and would withdraw with pain on the left, given the recent intracranial hemorrhage in May of this year and the administration of 25 mg of TPA during the cath a noncontrasted CT scan of the head was undertaken. Not withstanding its limited diagnostic accuracy if the patient had a in obvious epidural versus subdural hematoma with significant midline shift this would obviously have change the patient's management. Resp: Acute respiratory for failure secondary to likely aspiration. Upon her arrival in the ICU the patient was having mild hemoptysis. At this point I feel it is better to keep the patient intubated and sedated and reevaluate her clinical status in the morning. Will start antibiotics for presumptive aspiration pneumonia given atelectasis seen on the CT scan CV: History of ST elevation FL, per the verbal recommendations from cardiology, we will not continue Integrilin given the high risk for bleeding intracranially , the patient was given an aspirin load as well as a Plavix [address] Hendricks also instructed that she did not need a heparin infusion. When I did not see initial orders I phoned Dr. Hendricks and again confirmed the anticoagulation plan. A consult has been placed to Dr. Reilly, and echo is pending and we are trending troponins. Lipid panel pending. Fluids/Renal: History of contrast-induced nephropathy following contrast administration previously. We will continue IV fluids, strict I's and O's ID: Coverage for aspiration pneumonia with Zosyn GI/Nutrition: Transaminitis likely secondary to cardiogenic shock state prior to cardiac catheterization, hepatitis C screen ordered Heme: Anemia, multiple areas of bruising, we'll continue to watch for hematoma formation. Check H&H every 6 Endocrine: Check hemoglobin A1c, Accu-Cheks per protocol CODE STATUS: No CPR in event of cardiac arrest. Surrogate medical decision maker: Sons An extensive discussion with the son who lives local as well as this other son in [place]. Both were in agreement that should the patient going to cardiac arrest she would not want CPR as a heroic measure. Also reiterated if there is any evidence of permanent brain damage she would not want to undergo by sustaining treatment. I have personally spent 90 minutes of critical care time in the direct management of this patient. This is a life/limb threatening event. This includes time spent evaluating patient, direct bedside care, chart review, placing orders, interpretation of diagnostic studies, discussion with consultants, patient, and family members, as well as other required patient management activities. This time is exclusive of all separately billable procedures, and teaching time and separate from and in addition to any other critical care service time.
--- NOTE | 2016-08-04 21:59 | Procedure Note ---
Procedure Note Procedure Date Aug 04, 2016. Procedure Description Procedure Name: Right radial arterial line Procedure time out: side/site verified, patient ID confirmed, correct procedure Consent obtained: written (after discussion with son) Time of procedure: 20:00 Performed by: attending Indications: diagnostic Contraindications: other (recent bivalirudin and Integrilin, aspirin, Plavix load) Description: The right wrist was prepped with chlorhexidine and draped in sterile fashion. A 20-gauge arrow catheter was inserted into the right radial artery by a modified Seldinger technique. Patient tolerated the procedure well there was trace blood loss. Complications: none Patient tolerated procedure: well Post-procedure vital signs: reviewed and stable
[2016-08-04] MEDS ORDERED: THIAMINE HCL INJ 200 MG in SODIUM CHLORIDE 0.9% 50ML 50 ML IV ONE (22:00)
--- NOTE | 2016-08-04 22:20 | DIAGNOSTIC IMAGING REPORT ---
HEAD CT NONCONTRAST CT DOSE: 767.83 mGy.cm HISTORY: Altered mental status. TECHNIQUE: Multiaxial CT images of the head were performed without the use of intravenous contrast. Automated exposure control was utilized for this study. Comparison: Head CT 05/29/2016. Findings: Opacified right maxillary sinus, unchanged. Fluid level and moderate mucosal thickening within the left maxillary sinus. Partial opacification of the ethmoid air cells. The mastoid air cells are clear. Screw fixation of the odontoid which is partially visualized. Postoperative changes within the left globe. The calvarium and skull base are intact. Abnormal hyperdensity throughout the subarachnoid spaces primarily involving the anterior circulation within the cerebral hemispheres. There is decreased enhancement within the bilateral SPECIAL PROCEDURES TECH territories and within the cerebellum. No intraventricular hemorrhage. Of note, the patient is status post recent cardiac catheterization resulting and enhancement of the cerebral vessels. Impression: 1. This patient is status post recent cardiac catheterization which severely limits this examination from a technical standpoint. The abnormal hyperdensity throughout the subarachnoid spaces of the anterior circulation is symmetric and may be due to the recent cardiac catheterization contrast. However, this would obscure subarachnoid hemorrhage. Therefore, follow-up head CT is recommended in 6 to 12 hours for further evaluation. 2. There is also decreased enhancement throughout the posterior circulation which involves the bilateral occipital lobes and cerebellum. This could also be a result of the post cardiac catheterization changes. However, the diminished enhancement raises the possibility of ischemia in the appropriate clinical setting. Again, this should be followed up for confirmation. 3. These findings were discussed with Dr. Pemberton at 10:15 PM on 08/04/2016. Electronically signed by: Peter Tellez M.D. 08/04/2016 10:19 PM Dictated Date/Time: 08/04/2016 9:59 PM
[2016-08-04 22:34] LABS: CALCIUM 8.6 mg/dl (8.5-10.1)
[2016-08-04] MEDS: SODIUM CHLORIDE 0.45% 1000ML 1,000 ML IV SCH (22:39)
--- NOTE | 2016-08-04 22:41 | DIAGNOSTIC IMAGING REPORT ---
CHEST, ABDOMEN AND PELVIS CT WITHOUT CONTRAST CT DOSE: 447.60 mGy.cm HISTORY: Altered mental status. Status post cardiac catheterization. TECHNIQUE: Multiaxial CT images of the chest, abdomen, and pelvis were performed without contrast. COMPARISON: Abdomen and pelvis CT 06/13/2011. FINDINGS: The endotracheal tube terminates 1.5 cm from the presley. Motion artifact within the chest resulting in suboptimal evaluation. Dense consolidation involving the posterior aspect of the left lower lobe. There are also patchy and nodular density seen within the right lower lobe. No pneumothorax. Small ground glass airspace opacities within the left lung apex. A 7 mm nodular density within the left lung apex. Gas-filled and distended proximal to mid esophagus. Extensive thoracic spinal posterior fusion hardware. No mediastinal or hilar lymphadenopathy. Residual contrast due to the recent cardiac catheterization. Extensive calcified plaque within the thoracic aorta. The heart is mildly enlarged. No pleural or pericardial effusions. No mediastinal or hilar lymphadenopathy. Small amount of mucoid material within the bronchus intermedius. No pneumoperitoneum. No pneumatosis. Suboptimal evaluation of the chest abdomen and pelvis due to the motion artifact. Degenerative changes within the lumbar spine. No acute fractures. Vicarious excretion of contrast within the gallbladder. The visualized liver, spleen, and pancreas are unremarkable. Dense contrast within the kidneys due to the recent catheterization. Evaluation of abdominal structures are near nondiagnostic due to the motion artifact. No dilated loops of bowel to suggest an obstruction. The bladder is decompressed by Nolan catheter. Patchy hyperdensity within the right groin likely represents a small amount of subcutaneous hemorrhage due to the recent catheterization. Colonic diverticulosis. No retroperitoneal lymphadenopathy. No definite retroperitoneal hemorrhage identified. Aneurysmal dilatation of the proximal and distal abdominal aorta. The proximal aorta measures up to 4.2 cm and the distal aorta measures 4.6 x 2.9 cm. IMPRESSION: 1. Study is limited from a technical standpoint due to motion artifact. 2. Consolidation within the left lower lobe and patchy airspace opacity within the right lower lobe and left upper lobe. This likely represents pneumonia, possible secondary to aspiration. 3. Endotracheal tube terminates 1.5 cm from the presley. 4. Aneurysmal dilatation of the abdominal aorta measuring up to 4.6 cm distally as described above. 5. Small amount of subcutaneous hemorrhage within the right groin likely due to recent catheterization. Electronically signed by: Peter Tellez M.D. 08/04/2016 10:39 PM Dictated Date/Time: 08/04/2016 10:20 PM
[2016-08-04] MEDS ORDERED: PHARMACY GLYCEMIC MGMT CONSULT STA (22:49)
[2016-08-04] MEDS ORDERED: CLOPIDOGREL BISULFATE 300 MG TAB PO ONE (23:16)
[2016-08-04] MEDS ORDERED: PIPERACILL/TAZOBAC CONSULT ACTIVE PRN (23:45)
[2016-08-05] VITALS (23 sets, daily range): BP systolic 52–128; BP diastolic 32–63; PULSE 83–104; TEMP 36.5–37.4; O2SAT 77–100
[2016-08-05] MEDS ORDERED: PIPERACILL/TAZOBAC IV 3.375 GM in DEXTROSE 5% 100ML 100 ML IV ONE (00:30)
[2016-08-05 02:37] LABS: HEMATOCRIT 26.3 % (37-47)
[2016-08-05] MEDS ORDERED: NOREPINEPHRINE BIT INJ 8 MG in DEXTROSE 5% 500ML 500 ML IV PRN (02:45)
--- NOTE | 2016-08-05 03:19 | EMERGENCY ROOM VISIT NOTE ---
ED Visit Note 317am, called to the ICU for access with an IO. Patient is in emergent distress with a STEMI and reported coagulopathy. Patient is intubated on my arrival. Emergent intraosseous was placed in the right tibia with bone marrow aspiration and good flow with out infiltration patient tolerated the procedure well Procedure IO placement Reason emergent access Patient tolerated the procedure well Performed by myself
[2016-08-05] MEDS: PHENYLEPHRINE HCL INJ 20 MG in DEXTROSE 5% 500ML 500 ML IV PRN (03:42)
--- NOTE | 2016-08-05 03:43 | Critical Care Progress Note ---
Critical Care Progress Note Date of Service Aug 05, 2016. Critical Care Progress Note Pts blood pressure began to fall over the course of the evening. SBP< 90 when Phenylephrine and 2 (250cc) fluid boluses were started with little effect terminal manager effect. Pressures would initially respond only to drop back down further. A Stat CBC was ordered which demonstrated a change in Hemoglobin from 11.1 to 8.4 over just under [address] Pemberton was notified. Blood was ordered from the Blood bank and Levophed was hung from the pharmacy. The pt had lost IV access earlier in the evening and had 1 remaining. Emergently, as pts blood pressure was dropping into the 50 and 40's systolically, Dr. Colvin from the ED was asked to obtain IO access. During this time, IV team was also at bedside trying to obtain additional access. Blood arrived and was ran through the current IV site. Levophed was started in the IO with her current Phenylephrine. Some time later, IV team did obtain a 2nd 20g site in the right upper extremity. Blood pressures have rebounded slightly. We will continue to monitor and plan to transfuse an additional unit of blood. I have personally evaluated and examined this patient. I agree with assessment and plan of Brittney Sheth PA-C. Patient with previous ST-elevation myocardial infarction underwent bare metal stenting. Reviewed ECHO at bedside, pt. was on significant vasoactive support, extremely poor cardiac function. Patient's son at bedside explained gravity of situation and poor likelihood of success for continued aggressive measures. Joint decision making with patient's son at bedside and other son via telephone decided to stop all resuscitative measures and patient at 0810 am.
[2016-08-05] MEDS ORDERED: CALCIUM GLUCONATE 10% 1,000 MG in SODIUM CHLORIDE 0.9% 50ML 50 ML IV STA (03:46)
[2016-08-05] MEDS ORDERED: PHENYLEPHRINE HCL INJ 40 MG in DEXTROSE 5% 500ML 500 ML IV PRN (05:15)
[2016-08-05 05:49] LABS: ISTAT ARTERIAL BLOOD GAS HCO3 9 meq/L (19-24); ISTAT ARTERIAL BLOOD GAS PCO2 34 mmHg (35-46); ISTAT ARTERIAL BLOOD GAS PO2 57 mmHg (80-95); ISTAT ARTERIAL BLOOD GAS pH 7.01 (7.35-7.45); ISTAT CARBON DIOXIDE 10 mEq/l (24-31); ISTAT DELIVERY SYSTEM Ventilator; ISTAT FIO2 60 %; ISTAT PEEP 5; ISTAT SITE Art Line
[2016-08-05] MEDS: SODIUM CHLORIDE 0.45% 1000ML 1,000 ML IV SCH (05:49)
[2016-08-05] MEDS: INSULIN ASPART 100 UNITS/ML 3 ML PEN SC SCH ×2 (06:00)
[2016-08-05 06:28] LABS: ISTAT ARTERIAL BLOOD GAS HCO3 9 meq/L (19-24); ISTAT ARTERIAL BLOOD GAS PCO2 32 mmHg (35-46); ISTAT ARTERIAL BLOOD GAS PO2 83 mmHg (80-95); ISTAT ARTERIAL BLOOD GAS pH 7.05 (7.35-7.45); ISTAT CARBON DIOXIDE 10 mEq/l (24-31); ISTAT DELIVERY SYSTEM Ventilator; ISTAT FIO2 100 %; ISTAT PEEP 5; ISTAT RATE 25; ISTAT SITE Art Line; VE 11.8; Vt 500
[2016-08-05 06:40] LABS: MEAN CORPUSCULAR HEMOGLOBIN 29.6 pg (25-34); MEAN CORPUSCULAR HGB CONC 32.2 g/dl (32-36); PLATELET COUNT 121 K/uL (130-400); RED BLOOD COUNT 3.48 M/uL (4.2-5.4); WHITE BLOOD COUNT 15.34 K/uL (4.8-10.8)
[2016-08-05 06:41] LABS: INR 2.9 (0.9-1.1); PROTHROMBIN TIME (PATIENT) 32.5 SECONDS (9.0-12.0)
[2016-08-05 06:58] LABS: COMPLETE YES; ECHINOCYTES 1+; LYMPH ABS # 1.73 K/uL (1.2-3.4); LYMPHOCYTE % 11.3 %; META ABS # 1.07 K/uL (0-0); MYELOCYTE % 2.6 %; NEUTROPHILS % 73.9 %; PLT ESTIMATE NORMAL
[2016-08-05 07:29] LABS: BUN/CREATININE RATIO 13.3 (10-20); CALCIUM 7.2 mg/dl (8.5-10.1); CHOLESTEROL/HDL RATIO 1.9; CREATININE 3.4 mg/dl (0.60-1.20); MAGNESIUM 2.2 mg/dl (1.8-2.4); POTASSIUM 5.5 mmol/L (3.5-5.1)
--- NOTE | 2016-08-05 07:30 | DIAGNOSTIC IMAGING REPORT ---
CHEST ONE VIEW PORTABLE CLINICAL HISTORY: Orogastric tube. COMPARISON STUDY: Chest radiograph and chest CT August 04, 2016. FINDINGS: The endotracheal tube tip is obscured by spinal hardware but is likely just above the presley. The tip of the nasogastric tube is below the lower aspect of this image but at least within the mid body of the stomach. There is no pneumothorax. Right infrahilar and left basilar opacity persists. There is no evidence for pulmonary edema. No pneumothorax or pleural effusion is present. IMPRESSION: 1. Tip of nasogastric tube below the lower aspect of image but at least within the mid body of the stomach. 2. Increasing right basilar opacity with persistent left basilar opacity. The findings favor pneumonia. Electronically signed by: Deo Mejia M.D. 08/05/2016 7:28 AM Dictated Date/Time: 08/05/2016 7:25 AM
[2016-08-05] MEDS ORDERED: DOBUTamine 500MG / 250ML D5W ONE (07:33)
[2016-08-05 07:49] LABS: PHOSPHORUS 8.7 mg/dl (2.5-4.9)
[2016-08-05] MEDS ORDERED: PIPERACILL/TAZOBAC IV 3.375 GM in DEXTROSE 5% 100ML 100 ML IV SCH (08:00)
[2016-08-05] MEDS ORDERED: HEPARIN SOD 5000 UNIT/0.5 ML CARP SQ SCH (08:00)
[2016-08-05] MEDS ORDERED: ASPIRIN 325 MG ECTAB PO SCH (09:00)
[2016-08-05] MEDS ORDERED: CLOPIDOGREL BISULFATE 75 MG TAB PO SCH (09:00)
[2016-08-05] MEDS ORDERED: PANTOprazole INJ 40 MG in SYRINGE 0 ML IV SCH (11:00)
--- NOTE | 2016-08-05 14:51 | ECHOCARDIOGRAM REPORT ---
*NOTICE TO RECEIVING [employer] This information is strictly Confidential and protected under [place] law. [place] law prohibits you from making any further disclosure of this information unless further disclosure is expressly permitted by the written consent of the person to whom it pertains or is authorized by law. A general authorization for the release of medical or other information is not sufficient for this purpose. Hospital accepts no responsibility if the information is made available to any other person, INCLUDING THE PATIENT. Interpretation Summary * Name: SUNNI HAMILTON Study Date: 08/05/2016 07:26 AM BP: 76/45 mmHg * Patient Location: .[facility]\S\E109\S\1 HR: 89 * : 1925 (M/d/yyy) Gender: Female Height: 60 in * Age: 89 yrs Ethnicity: CA Weight: 141 lb * Ordering Physician: J Calros Pemberton * Referring Physician: Jacquelyn Moreno * Performed By: Rivera Avila RCS * * Reason For Study: AMI * BSA: 1.6 m2 * -- Conclusions -- * Left ventricular systolic function is severely reduced. * Large area of akinesis involving the entire anterior wall and apex. Other jensen hypokinetic. * Ejection Fraction = <15%. Procedure Details * A complete two-dimensional transthoracic echocardiogram was performed (2D, M-mode, Doppler and color flow Doppler). * There were technical limitations due to patient'ssupine positioning while on mechanical ventilation * The study was technically difficult. * A contrast injection of Definity was performed to improve assessment of LV function. * Contrast was injected into an intravenous site in the central line. * One vial of Definity ultrasound contrast was diluted in normal saline to a total volume of 10 ml. A total of '2' ml of solution was administered during imaging. * Lot # [id number] of Definity utilized for procedure. * Expiration date 1APR18. * The attending nurse who injected the contrast agent was Mehreen Love RN. Left Ventricle * The left ventricle is grossly normal size. * There is normal left ventricular wall thickness. * Ejection Fraction = <15%. * Left ventricular systolic function is severely reduced. * Large area of akinesis involving the entire anterior wall and apex. Other jensen hypokinetic. Right Ventricle * The right ventricle is not well visualized. * The right ventricular systolic function is reduced as assessed by tricuspid annular plane systolic excursion (TAPSE) (TAPSE <1.6 cm). Atria * The left atrium is not well visualized. * Right atrium not well visualized. * There is no evidence of atrial septal defect, but resolution does not allow assessment for a patent foramen ovale. Mitral Valve * The mitral valve is not well visualized. Tricuspid Valve * The tricuspid valve is not well visualized. Aortic Valve * The aortic valve is trileaflet. * The aortic valve opens well. * Aortic valve sclerosis moderate, without significant aortic valvular stenosis. Pulmonic Valve * The pulmonic valve is not well visualized. Great Vessels * The aortic root is normal size. * The pulmonary is not well visualized. Pericardium/Pleural * There is no pericardial effusion. Great Vessels * IVC not well visualized. MMode 2D Measurements and Calculations IVSd 1.0 cm IVSs 1.2 cm LVIDd 5.5 cm LVIDs 5.1 cm LVPWd 1.0 cm LVPWs 1.1 cm IVS/LVPW 1.0 FS 7.3 % EDV(Teich) 148.7 ml ESV(Teich) 124.8 ml EF(Teich) 16.1 % EDV(cubed) 168.2 ml ESV(cubed) 134.0 ml EF(cubed) 20.4 % % IVS thick 15.0 % % LVPW thick 6.5 % LV mass(C)d 221.1 grams LV mass(C)dI 137.5 grams/m\S\2 LV mass(C)s 224.3 grams LV mass(C)sI 139.4 grams/m\S\2 CO(Teich) 2.0 l/min CI(Teich) 1.2 l/min/m\S\2 SV(Teich) 23.9 ml SI(Teich) 14.9 ml/m\S\2 CO(cubed) 2.9 l/min CI(cubed) 1.8 l/min/m\S\2 SV(cubed) 34.2 ml SI(cubed) 21.3 ml/m\S\2 Ao root diam 3.3 cm Ao root area 8.6 cm\S\2 ACS 1.4 cm LA dimension 4.5 cm LA/Ao 1.4 LVAd ap4 29.7 cm\S\2 LVLd ap4 7.8 cm EDV(MOD-sp4) 92.0 ml LVAs ap4 25.6 cm\S\2 LVLs ap4 6.7 cm ESV(MOD-sp4) 79.0 ml EF(MOD-sp4) 14.1 % LVAd ap2 27.7 cm\S\2 LVLd ap2 7.5 cm EDV(MOD-sp2) 85.0 ml LVAs ap2 25.0 cm\S\2 LVLs ap2 7.0 cm ESV(MOD-sp2) 75.0 ml EF(MOD-sp2) 11.8 % CO(MOD-sp4) 1.1 l/min CI(MOD-sp4) 0.68 l/min/m\S\2 SV(MOD-sp4) 13.0 ml SI(MOD-sp4) 8.1 ml/m\S\2 CO(MOD-sp2) 0.84 l/min CI(MOD-sp2) 0.52 l/min/m\S\2 SV(MOD-sp2) 10.0 ml SI(MOD-sp2) 6.2 ml/m\S\2 Doppler Measurements and Calculations MV E max dale 93.8 cm/sec MV A max dale 48.3 cm/sec MV E/A 1.9 MV P1/2t max dale 101.6 cm/sec MV P1/2t 66.9 msec MVA(P1/2t) 3.3 cm\S\2 MV dec slope 445.3 cm/sec\S\2 MV dec time 0.11 sec Ao V2 max 73.6 cm/sec Ao max PG 2.2 mmHg Ao max PG (full) 0.36 mmHg LV V1 max PG 1.8 mmHg LV V1 max 67.1 cm/sec PA V2 max 62.8 cm/sec PA max PG 1.6 mmHg
[2016-08-06 06:42] LABS: ESTIMATED AVERAGE GLUCOSE 114 mg/dl; HA1C FLAG Normal (Normal)
--- NOTE | 2016-08-30 09:38 | Discharge Summary ---
Discharge Summary Date of Service August 30, 2016. Discharge Summary Admission Date: Aug 04, 2016 at 18:42 Discharge Date: Aug 05, 2016 Discharge Disposition: Principal Diagnosis: Cardiogenic shock Secondary Diagnoses/Problems: Acute myocardial infarction Coronary artery disease Hypertension Hyperlipidemia Intracranial hemorrhage status post fall in June 2016 Procedures: Cardiac catheterization on 08/04/2016 Right radial arterial line 08/04/2016 Vaccinations: Not applicable Consultations: Cardiology: Ruthie Intensive care medicine: Nilay Admission Information HPI (per Admitting provider): 89 y/o F Hx CAD, Systolic CHF, CKD, ICH following head injury. Pt was walking in the backyard of her nursing facility - devloped acute dizziness, confusion, vomiting and fecal incontinence. She was brought into the ER and diagnosed with an STEMI. She proceeded to the greens laborer and received a BMS to the RCA. The pt is hypoxic, tachypnic and tachycardic following the procedure and is intubated at the time of evaluation by the medical service. She appears to be hemorrhaging form multiple sites as she has widespread superficial bruising, blood from her catheter and from her ETT. She could not provide any information however her son is present at bedside to provide the above information. Physical Exam (per Admitting): General Appearance: + pertinent finding (Intubated - sedated - pupils equal) Head: normocephalic, atraumatic Eyes: PERRL ENT: + pertinent finding (CAnnot examine oral cavity - small amount of blood in EG tube) Neck: + JVD Respiratory/Chest: + respiratory distress, + decreased breath sounds, + accessory muscle use, + crackles, + pertinent finding (B/L crackles - exam limited by coarse airway sounds ) Cardiovascular: + tachycardia, + systolic murmur Abdomen/GI: soft, no organomegaly Extremities/Musculoskelatal: normal inspection, no calf tenderness, normal capillary refill, no pedal edema Neurologic/Psych: + pertinent finding (Exam differed due to intubation/ sedation) Skin: + pertinent finding (There is widespread superficial bleeding ) Hospital Course Patient is an 89-year-old female who presented to the emergency department with a chief complaint of chest pain, she was diagnosed with an acute ST elevation myocardial infarction. She immediately went as a hard alert to the cardiac Blister Packing Machine Tender for which PCI was performed. She was transferred to the ICU for further medical management following the cardiac cath. Patient was found to be anemic and required blood transfusions for concern of active ongoing cardiac ischemia. Patient required multiple vasoactive medications to maintain an adequate blood pressure. At 8 AM with the son present at the bedside the patient further decompensated was elected to be a DO NOT RESUSCITATE and further resuscitative efforts were discontinued and the patient at 08: 10 on 08/05/2016. Discharge Instructions Not applicable patient Additional Copies To Lucas Tipton M.D. Zoda, Albert R M.D.
== END 2016-08-05 08:10 | disposition expired | DRG 248 ==
LOC: EDBD 16:04 → C.EDB 16:05 → C.MSICU 18:42
PROVIDERS: ADMIT Internal Medicine Cardiovascular Disease; ATTEND Internal Medicine Cardiovascular Disease
PROC: 0BH17EZ Insertion of Endotracheal Airway into Trachea, Via Natural or Artificial Opening (ICD-10-PCS; 2016-08-04)
PROC: 5A1935Z Respiratory Ventilation, Less than 24 Consecutive Hours (ICD-10-PCS; 2016-08-04)
PROC: 03HY32Z Insertion of Monitoring Device into Upper Artery, Percutaneous Approach (ICD-10-PCS; 2016-08-04)
PROC: B2101ZZ Fluoroscopy of Single Coronary Artery using Low Osmolar Contrast (ICD-10-PCS; principal; 2016-08-04 16:21)
PROC: 4A023N7 Measurement of Cardiac Sampling and Pressure, Left Heart, Percutaneous Approach (ICD-10-PCS; principal; 2016-08-04 16:21)
PROC: 02703DZ Dilation of Coronary Artery, One Artery with Intraluminal Device, Percutaneous Approach (ICD-10-PCS; principal; 2016-08-04 16:21)
PROC: 0YHH33Z Insertion of Infusion Device into Right Lower Leg, Percutaneous Approach (ICD-10-PCS; 2016-08-05)
DX: I21.11 ST elevation (STEMI) myocardial infarction involving right coronary artery (principal); J96.01 Acute respiratory failure with hypoxia; G93.40 Encephalopathy, unspecified; J69.0 Pneumonitis due to inhalation of food and vomit; I50.22 Chronic systolic (congestive) heart failure; D68.32 Hemorrhagic disorder due to extrinsic circulating anticoagulants; N18.4 Chronic kidney disease, stage 4 (severe); I42.9 Cardiomyopathy, unspecified; R58 Hemorrhage, not elsewhere classified; T45.515A Adverse effect of anticoagulants, initial encounter; Y92.234 Operating room of hospital as the place of occurrence of the external cause; I25.10 Atherosclerotic heart disease of native coronary artery without angina pectoris; R15.9 Full incontinence of feces; R57.0 Cardiogenic shock; T17.918A Gastric contents in respiratory tract, part unspecified causing other injury, initial encounter; R00.1 Bradycardia, unspecified; I95.9 Hypotension, unspecified; R11.11 Vomiting without nausea; R74.0 Nonspecific elevation of levels of transaminase and lactic acid dehydrogenase [LDH]; I25.2 Old myocardial infarction; D64.9 Anemia, unspecified; F17.210 Nicotine dependence, cigarettes, uncomplicated; F03.90 Unspecified dementia, unspecified severity, without behavioral disturbance, psychotic disturbance, mood disturbance, and anxiety; Z51.5 Encounter for palliative care; Z66 Do not resuscitate; Z95.5 Presence of coronary angioplasty implant and graft; Z86.2 Personal history of diseases of the blood and blood-forming organs and certain disorders involving the immune mechanism; Z79.899 Other long term (current) drug therapy